=== PATIENT | female | born 1955 | race Caucasian/White ===

== ENCOUNTER 2016-08-19 11:12 | Inpatient (IN) | payer OTHER ==
[~2016-08-19] VITALS: Ht 157.5 cm; Wt 58.1 kg
[~2016-08-19 11:12] MED LIST: ACET-4192 PO; ACYC800T1 PO; BENA20TA4 PO; ESOM40EC PO; GLYB1TAB13 PO; HYDR-4452 PO; HYDR4TAB4 PO; SIMV20TA6 PO; SITA100T8 PO
[2016-08-19 11:46] VITALS: BP 153/73
--- NOTE | 2016-08-19 12:10 | NUR ---
Pt taken to bed 8.
--- NOTE | 2016-08-19 12:11 | NUR ---
60/F bib daughter in law for evaluation of generalized weakness x1 month. Daughter in law states that the patient went to see her PMD, and they did lab work. She states they called her and told her she had a severe anemia and needed to be referred to a specialist. Pt unable to provide specific lab results or warml and pale. VSS.
--- NOTE | 2016-08-19 12:33 | NUR ---
Dr. Merlos evaluating patient at bedside.
--- NOTE | 2016-08-19 12:33 | NUR ---
Patient being evaluated by physician at bedside.
[2016-08-19 12:43] LABS: PARTIAL THROMBOPLASTIN TIME 24.9 secs (22-35.6); PROTHROMBIN TIME 10.4 secs (10.8-13.4)
[2016-08-19 12:48] LABS: ANION GAP 10.8 (8-16); CALCIUM 7.9 mg/dL (8.5-10.1); CARBON DIOXIDE 28.3 mmol/L (21-32); CREATININE 0.6 mg/dL (0.6-1.3); POTASSIUM 4.1 mmol/L (3.5-5.1)
[2016-08-19 12:53] LABS: ALBUMIN 3.8 g/dL (3.4-5.0); TOTAL BILIRUBIN 0.6 mg/dL (0.0-1.0); TOTAL PROTEIN, SERUM 7.8 g/dL (6.4-8.2)
[2016-08-19 13:15] LABS: BASOPHILS # (AUTO) 0.1 K/uL (0.00-0.22); BASOPHILS % (AUTO) 0.6 % (0.0-2.0); EOSINOPHILS # (AUTO) 0.3 K/uL (0-0.4); HEMATOCRIT 26.6 % (36-48); HEMOGLOBIN 7.1 g/dL (12.0-16.0); LYMPHOCYTES % (AUTO) 23.1 % (20.5-51.1); MEAN CORPUSCULAR HEMOGLOBIN 14 pg (27-31); MEAN CORPUSCULAR HGB CONC 27 g/dL (33-37); MEAN CORPUSCULAR VOLUME 53 fL (80-94); MONOCYTES # (AUTO) 0.4 K/uL (0.8-1.0); MONOCYTES % (AUTO) 4.8 % (1.7-9.3); NEUTROPHILS # (AUTO) 6.1 K/uL (1.8-7.7); NEUTROPHILS % (AUTO) 68.5 % (42.2-75.2); PLATELET COUNT (AUTO) 424 K/uL (140-450); RED BLOOD CELL COUNT(AUTO) 5.06 MIL/uL (4.20-5.40); RED CELL DISTRIBUTION WIDTH 21.4 % (11.6-13.7); WHITE BLOOD COUNT (AUTO) 8.9 K/uL (4.8-10.8)
--- NOTE | 2016-08-19 13:22 | NUR ---
Daughter in law at bedside. Pt is calm and relaxed. VSS. No distress noted.
[2016-08-19 13:44] LABS: ANISOCYTOSIS 1+; HYPOCHROMASIA 2+; OVALOCYTES 1+; POIKILOCYTOSIS 1+; SPHEROCYTES 1+; STOMATOCYTES 1+
[2016-08-19] MEDS ORDERED: MORPHINE SULFATE 2 MG/ML SYR IVP PRN (14:05)
[2016-08-19] MEDS ORDERED: ONDANSETRON 4 MG/2 ML VIAL IVP PRN (14:05)
[2016-08-19] MEDS ORDERED: HYDROcodone/APAP 5/325 MG 1 TAB TAB PO PRN (14:05)
--- NOTE | 2016-08-19 14:59 | NUR ---
Patient appears to be resting comfortably in bed. VSS.
[2016-08-19 15:20] VITALS: BP 129/68
--- NOTE | 2016-08-19 15:20 | NUR ---
PT ADMITTED FROM ER, WITH DX OF ANEMIA AND ORTHOSTATIC HYPOTENSION. AWAKE ALERT AND ORIENTED X4, LITHUANIAN SPEAKING. BREATHING EVENLY AND UNLABORED. NO SIGNS OF ACUTE DISTRESS. NO C/O OF LIGHT HEADEDNESS, BLURRED VISION OR DIZZINESS. SKIN IS WARM AND DRY, NO SIGNS OF ANY BOWEL OR BLADDER DISCOMFORT. DENIES OF ANY PAIN OR DISCOMFORT. ALL NEEDS ATTENDED, SAFETY PRECAUTIONS MAINTAINED. CALL LIGHT WITHIN REACH.
--- NOTE | 2016-08-19 15:45 | NUR ---
DR ARIAS AWARE OF LAB REQUIRES AN MRSA SWAB ORDER.
--- NOTE | 2016-08-19 16:00 | NUR ---
OBTAINED FIRST UNIT OF PRBC. VERIFIED AT BEDSIDE WITH BIRD KERNS. PT AWAKE ALERT, NO SIGNS OF ACUTE DISTRESS. CONTINUE TO MONITOR.
--- NOTE | 2016-08-19 16:05 | NUR ---
PT STARTED ON FIRST UNIT OF PRBC. TOLERATING WELL CONTINUE TO MONITOR.
--- NOTE | 2016-08-19 16:20 | NUR ---
PT RESTING WELL, NO SIGNS OF ADVERSE EFFECTS FROM BLOOD TRANSFUSION. DENIES OF ANY SOB, FEVER, HIVES OR ITCHING. CONTINUE TO MONITOR.
[2016-08-19] MEDS ORDERED: PNEUMOCOCCAL VACCINE 23 MCG/0.5 ML VIAL IMVAC SCH (16:40)
--- NOTE | 2016-08-19 16:53 | NUR ---
CHARGE NURSE SPOKE WITH ER MD TO PLACE ORDER FOR CODE STATUS.
[2016-08-19] MEDS ORDERED: LORazepam 0.5 MG TAB PO PRN (17:30)
--- NOTE | 2016-08-19 18:22 | NUR ---
PT AWAKE ALERT AND RESPONSIVE, NO SIGNS OF ACUTE DISTRESS. WILL ENDORSE TO ONCOMING ROLL FILLER NURSE FOR CONTINUITY OF CARE.
[2016-08-19 18:47] LABS: APPEARANCE,URINE CLEAR (CLEAR); BILIRUBIN,URINE NEGATIVE (NEGATIVE); BLOOD, URINE NEGATIVE (NEGATIVE); COLOR,URINE YELLOW (YELLOW); LEUKOCYTE ESTERASE ,URINE NEGATIVE (NEGATIVE); NITRITE, URINE NEGATIVE (NEGATIVE); PROTEIN,URINE NEGATIVE (NEGATIVE); UGLUCOSE 2+ (NEGATIVE); UROBILINOGEN,URINE 0.2 EU/dL (0.2 - 1)
[2016-08-19 18:50] LABS: BACTERIA,URINE RARE /HPF (None Seen); RBC,URINE 0-3 /HPF (0-5); SQUAMOUS EPITHELIAL CELL,UR 0-5 /LPF (0-3 (FEW)); WBC,URINE 0-3 /HPF (0-5)
[2016-08-19 18:52] LABS: AMPHETAMINE, URINE NEG. ng/ml (NEG <=1000); BARBITURATE, URINE NEG. ng/ml (NEG <=200); BENZODIAZEPINE, URINE NEG. ng/mL (NEG <=200); CANNABINOID, URINE NEG. ng/mL (NEG <=50); COCAINE, URINE NEG. ng/mL (NEG <=300); OPIATE, URINE NEG. ng/mL (NEG <=2000); PHENCYCLIDINE SCREEN,URINE NEG. ng/mL (NEG <=25)
[2016-08-19] MEDS ORDERED: MECLIZINE 25 MG TAB PO PRN (19:15)
--- NOTE | 2016-08-19 19:25 | NUR ---
PT FINISHED FIRST UNIT OF PRBC. ALERT AND ORIENTED, NO SIGNS OF ACUTE DISTRESS. BOSTON CUTTER NURSE TO CONTINUE PLAN OF CARE.
--- NOTE | 2016-08-19 19:35 | NUR ---
RECEIVED REPORT FROM BIRD BLOUNT AT BEDSIDE. INITIAL ASSESSMENT COMPLETED. PT AAOX4. PT RECEIVING FIRST UNIT OF BLOOD. PT TOLERATING IT WELL. PT STABLE, ORIENTED PT TO ROOM AND SURROUNDINGS AND USE OF CALL LIGHT. PT'S SKIN IS INTACT. PT HAS IV HAS IV ON RIGHT AC G 18; INFUSING BLOOD WELL. EXPLAINED PLAN OF CARE TO PT AND SHE VERBALIZES UNDERSTANDING. WILL CONTINUE TO MONITOR PT.
[2016-08-19 20:00] VITALS: BP 135/75
[2016-08-19] MEDS: BLOOD GLUCOSE MONITORING 1 DEV DEV FS SCH (21:00)
--- NOTE | 2016-08-19 21:20 | NUR ---
PT TOLERATING BLOOD TRANSFUSION WELL. NO SIGNS OF DISTRESS OR DISCOMFORT NOTED. WILL CONTINUE TO MONITOR PT.
--- NOTE | 2016-08-19 22:10 | NUR ---
PT COMPLAINING OF GENERALIZED PAIN. VS STABLE, WILL MEDICATE ORDERED.
[2016-08-19] MEDS: SIMVASTATIN 20 MG TAB PO SCH (22:13)
[2016-08-19] MEDS: ACYCLOVIR 800 MG TAB PO SCH (22:13)
--- NOTE | 2016-08-19 22:15 | NUR ---
PT TOLERATED 2100 MEDS WELL. WILL CONTINUE TO MONITOR PT.
[2016-08-19] MEDS: INSULIN LISPRO SLIDING SCALE 100 UNITS/ML VIAL SUBQ PRN (22:21)
--- NOTE | 2016-08-19 22:35 | NUR ---
SECOND UNIT OF BLOOD TRANSFUSION FINISHED. PT STABLE. PT TOLERATED IT WELL. WILL CONTINUE TO MONITOR PT.
[2016-08-20] VITALS: BP 137/71
--- NOTE | 2016-08-20 00:13 | NUR ---
CHECKED ON PT VS STABLE. NO DISTRESS/DISCOMFORT NOTED. WILL CONTINUE TO MONITOR PT.
--- NOTE | 2016-08-20 02:25 | NUR ---
PT AMBULATED TO THE RESTROOM. PT BACK IN BED NOW. PT STABLE, WILL CONTINUE TO MONITOR PT.
[2016-08-20 04:00] VITALS: BP 119/68
--- NOTE | 2016-08-20 04:15 | NUR ---
PT SLEEPING AT THIS TIME. NO SIGNS OF DISTRESS NOTED. WILL CONTINUE TO MONITOR PT.
--- NOTE | 2016-08-20 05:07 | NUR ---
PT AMBULATED TO THE RESTROOM. PT BACK IN BED NOW. PT STABLE, WILL CONTINUE TO MONITOR PT.
[2016-08-20] MEDS: PANTOPRAZOLE 40 MG TABEC PO SCH (06:05)
--- NOTE | 2016-08-20 06:10 | NUR ---
PT TOLERATED MORNING MEDS WELL. WILL CONTINUE TO MONITOR PT.
[2016-08-20] MEDS: BLOOD GLUCOSE MONITORING 1 DEV DEV FS SCH ×4 (06:21→21:06)
[2016-08-20] MEDS: INSULIN LISPRO SLIDING SCALE 100 UNITS/ML VIAL SUBQ PRN ×2 (06:21→10:43)
--- NOTE | 2016-08-20 07:11 | NUR ---
PATIENT HAS BEEN SCREENED AND CATEGORIZED MODERATE NUTRITION RISK. PATIENT WILL BE SEEN WITHIN 3-5 DAYS OF ADMISSION. 08/22/16-08/24/16 DEBORAH GRISSOM MS, RDN
--- NOTE | 2016-08-20 07:17 | NUR ---
ENDORSED PLAN OF CARE TO DAY SHIFT NURSE. PT IN STABLE CONDITION.
--- NOTE | 2016-08-20 07:18 | NUR ---
PT AWAKE ALERT AND ORIENTED X4, YAKUT SPEAKING. BREATHING EVENLY AND UNLABORED. NO SIGNS OF ACUTE DISTRESS. NO C/O OF LIGHT HEADEDNESS, BLURRED VISION OR DIZZINESS. SKIN IS WARM AND DRY, NO SIGNS OF ANY BOWEL OR BLADDER DISCOMFORT. DENIES OF ANY PAIN OR DISCOMFORT. ALL NEEDS ATTENDED, SAFETY PRECAUTIONS MAINTAINED. CALL LIGHT WITHIN REACH.
[2016-08-20 07:41] LABS: BASOPHILS # (AUTO) 0.1 K/uL (0.00-0.22); BASOPHILS % (AUTO) 1.6 % (0.0-2.0); EOSINOPHILS # (AUTO) 0.4 K/uL (0-0.4); EOSINOPHILS % (AUTO) 5.4 % (0.0-4.0); HEMATOCRIT 32.5 % (36-48); HEMOGLOBIN 9.1 g/dL (12.0-16.0); LYMPHOCYTES # (AUTO) 1.8 K/uL (2.5-16.5); LYMPHOCYTES % (AUTO) 26.3 % (20.5-51.1); MEAN CORPUSCULAR HEMOGLOBIN 17 pg (27-31); MEAN CORPUSCULAR HGB CONC 28 g/dL (33-37); MEAN CORPUSCULAR VOLUME 59 fL (80-94); MONOCYTES # (AUTO) 0.4 K/uL (0.8-1.0); MONOCYTES % (AUTO) 5.2 % (1.7-9.3); NEUTROPHILS # (AUTO) 4.1 K/uL (1.8-7.7); NEUTROPHILS % (AUTO) 61.5 % (42.2-75.2); PLATELET COUNT (AUTO) 342 K/uL (140-450); RED BLOOD CELL COUNT(AUTO) 5.48 MIL/uL (4.20-5.40); RED CELL DISTRIBUTION WIDTH 32.8 % (11.6-13.7); WHITE BLOOD COUNT (AUTO) 6.8 K/uL (4.8-10.8)
[2016-08-20 07:53] VITALS: BP 122/69
[2016-08-20 07:58] LABS: ANION GAP 11.5 (8-16); CALCIUM 7.9 mg/dL (8.5-10.1); CARBON DIOXIDE 28.6 mmol/L (21-32); CREATININE 0.5 mg/dL (0.6-1.3); POTASSIUM 4.1 mmol/L (3.5-5.1)
[2016-08-20 08:01] LABS: MAGNESIUM 1.9 mg/dL (1.8-2.4); PHOSPHORUS 4.5 mg/dL (2.5-4.9)
[2016-08-20] MEDS: metFORMIN 500 MG TAB PO SCH ×3 (08:31→16:02)
[2016-08-20] MEDS: glyBURIDE 5 MG TAB PO SCH ×3 (08:31→16:03)
[2016-08-20] MEDS: busPIRone 5 MG TAB PO SCH (08:31)
[2016-08-20] MEDS: ACYCLOVIR 800 MG TAB PO SCH ×2 (08:31→21:00)
[2016-08-20 08:45] LABS: HYPOCHROMASIA 2+; POIKILOCYTOSIS 1+
[2016-08-20 08:46] LABS: ANISOCYTOSIS 2+
[2016-08-20] MEDS ORDERED: NON-FORMULARY ITEM (Esomeprazole Magnesium* (Nexium*) 40 MG) PO SCH (09:00)
[2016-08-20] MEDS ORDERED: METFORMIN HCL PO SCH (09:00)
[2016-08-20] MEDS ORDERED: GLYBURIDE PO SCH (09:00)
[2016-08-20 10:21] LABS: FERRITIN 4 ng/mL (15-150); FOLIC ACID > 20.00 ng/mL (>3.0)
[2016-08-20 10:47] LABS: TRANSFERRIN 386 mg/dL (200-370)
[2016-08-20 11:55] VITALS: BP 126/59
[2016-08-20 15:56] VITALS: BP 127/63
--- NOTE | 2016-08-20 18:26 | NUR ---
NEW ORDERS RECEIVED FROM DR. PUCKETT. NOTED AND CARRIED OUT.
--- NOTE | 2016-08-20 18:58 | NUR ---
PT ALERT AND RESPONSIVE, NO SIGNS OF ACUTE DISTRESS. ENDORSED TO ONCOMING QUALITY ASSURANCE ANALYST NURSE FOR CONTINUITY OF CARE
--- NOTE | 2016-08-20 19:20 | NUR ---
RECEIVED PT AWAKE, AAOX4, OCCITAN SPEAKING ONLY, DENIES ANY PAIN, VITAL SIGNS STABLE, PLAN OF CARE DISCUSSED WITH FAMILY MEMBERS AT BEDSIDE, SAFETY MEASURES IN PLACE, CALL LIGHT WITHIN REACH.
--- NOTE | 2016-08-20 19:50 | NUR ---
PT AMBULATED TO BR WITH STEADY GAIT, NO BM AT THIS TIME, UNABLE TO COLLECT STOOL FOR OCCULT BLOOD, WILL FOLLOW UP, ALL NEEDS ATTENDED.
[2016-08-20 20:00] VITALS: BP 118/62
[2016-08-20] MEDS: SIMVASTATIN 20 MG TAB PO SCH (21:03)
--- NOTE | 2016-08-20 21:05 | NUR ---
ECHOCARDIOGRAM DONE, BLOOD SUGAR CHECKED WITH 213 RESULT, COVERAGE GIVEN, SNACK PROVIDED, DUE PO MEDICATION ADMINISTERED, MONITORED CLOSELY.
--- NOTE | 2016-08-20 22:31 | NUR ---
ULTRASOUND OF CAROTID DONE, TOLERATED WELL, MONITORED CLOSELY.
[2016-08-21] VITALS: BP 124/60
--- NOTE | 2016-08-21 | NUR ---
PT SLEEPING, EASILY AROUSABLE, VITAL SIGNS STABLE, DENIES ANY PAIN, NO SOB NOTED, CONTINUE TO MONITOR CLOSELY.
--- NOTE | 2016-08-21 03:50 | NUR ---
PT SLEEPING, EASILY AROUSABLE, VITAL SIGNS TAKEN, BP STABLE, SB ON TELE, ASYMPTOMATIC, NO SIGNS OF DISTRESS, MONITORED CLOSELY.
[2016-08-21 04:00] VITALS: BP 114/67
[2016-08-21] MEDS: PANTOPRAZOLE 40 MG TABEC PO SCH (06:01)
--- NOTE | 2016-08-21 06:02 | NUR ---
BLOOD SUGAR CHECKED WITH 125 RESULT, DUE PO MEDICATION GIVEN, NO DISTRESS NOTED, MONITORED CLOSELY.
[2016-08-21] MEDS: BLOOD GLUCOSE MONITORING 1 DEV DEV FS SCH ×2 (06:31→11:30)
[2016-08-21 07:18] LABS: HEMOGLOBIN 9.6 g/dL (12.0-16.0); MEAN CORPUSCULAR HEMOGLOBIN 17 pg (27-31); MEAN CORPUSCULAR HGB CONC 29 g/dL (33-37); MEAN CORPUSCULAR VOLUME 58 fL (80-94); PLATELET COUNT (AUTO) 354 K/uL (140-450); RED BLOOD CELL COUNT(AUTO) 5.65 MIL/uL (4.20-5.40); RED CELL DISTRIBUTION WIDTH 32.7 % (11.6-13.7); WHITE BLOOD COUNT (AUTO) 8.3 K/uL (4.8-10.8)
--- NOTE | 2016-08-21 07:25 | NUR ---
PT SLEEPING, EASILY AROUSABLE, REPORT GIVEN TO RN LEI FOR CONTINUITY OF CARE.
--- NOTE | 2016-08-21 07:30 | NUR ---
RECEIVED ON BED AAOX4. NO SOB NOTED. NO C/O PAIN AT THIS TIME. IV TO RT AC PATENT AND INTACT. CHEST CLEAR. ABDOMEN SOFT, BOWEL SOUNDS PRESENT. NO EDEMA NOTED. INSTRUCTED PT TO CALL FOR ASSISTANCE, CALL LIGHT WITHIN REACH. PT VERBALIZED UNDERSTANDING.
[2016-08-21 07:38] LABS: CALCIUM 7.9 mg/dL (8.5-10.1); CARBON DIOXIDE 26.9 mmol/L (21-32); CREATININE 0.5 mg/dL (0.6-1.3); POTASSIUM 3.9 mmol/L (3.5-5.1)
[2016-08-21 08:00] VITALS: BP 129/72
[2016-08-21] MEDS ORDERED: FERROUS SULFATE 325 MG TABEC PO SCH (08:00)
--- NOTE | 2016-08-21 08:00 | NUR ---
SPECIMEN COLLECTED FOR STOOL OB AND SENT TO LAB.
[2016-08-21 08:32] LABS: BAND % (MANUAL) 1 % (0-8); EOSINOPHILS % (MANUAL) 7 % (0-4); LYMPHOCYTES % (MANUAL) 21 % (20-46); MONOCYTES % (MANUAL) 1 % (5-12); NEUTROPHILS % (MANUAL) 70 (43-65)
[2016-08-21 08:34] LABS: PLATELET ESTIMATE ADEQUATE
[2016-08-21 08:35] LABS: HYPOCHROMASIA 3+
[2016-08-21] MEDS: glyBURIDE 5 MG TAB PO SCH ×2 (09:03→12:32)
[2016-08-21] MEDS: ACYCLOVIR 800 MG TAB PO SCH (09:03)
[2016-08-21] MEDS: metFORMIN 500 MG TAB PO SCH ×2 (09:04→12:33)
[2016-08-21] MEDS: busPIRone 5 MG TAB PO SCH (09:04)
[2016-08-21] MEDS ORDERED: FERRIC GLUCONATE 125 MG in NACL 0.9% 100 ML IV SCH (09:45)
[2016-08-21 12:00] VITALS: BP 124/63
--- NOTE | 2016-08-21 12:30 | NUR ---
PT CONSUMED 100% OF LUNCHED SERVED. FOOD TOLERATED WELL.
[2016-08-21] MEDS: INSULIN LISPRO SLIDING SCALE 100 UNITS/ML VIAL SUBQ PRN (12:33)
--- NOTE | 2016-08-21 14:15 | NUR ---
PT TALKING TO FAMILY AT THE BEDSIDE.
[2016-08-21] MEDS ORDERED: FERR325E14 PO (15:35)
--- NOTE | 2016-08-21 16:00 | NUR ---
DISCHARGE INSTRUCTIONS GIVEN TO PT AND PT'S SON, BOTH VERBALIZED FULL UNDERSTANDING OF THE INSTRUCTIONS GIVEN AND THE NEED TO FOLLOW UP WITH PCP WITHIN 7 DAYS. ARM BANDS AND IV REMOVED, CANNULA TIP INTACT.
--- NOTE | 2016-08-21 16:00 | NUR ---
PT WHEELED OUT IN STABLE CONDITION. NO COMPLAINTS MADE. PT IS DISCHARGE HOME WITH FAMILY.
== END 2016-08-21 16:15 | disposition home or self-care (01) | DRG 663 ==
LOC: MED 11:12 → MTU 14:02
PROVIDERS: ADMIT Family Medicine; ATTEND Family Medicine
PROC: 30233N1 Transfusion of Nonautologous Red Blood Cells into Peripheral Vein, Percutaneous Approach (ICD-10-PCS; principal; 2016-08-19)
DX: D50.9 Iron deficiency anemia, unspecified (principal); N17.0 Acute kidney failure with tubular necrosis; D68.59 Other primary thrombophilia; G90.9 Disorder of the autonomic nervous system, unspecified; E11.65 Type 2 diabetes mellitus with hyperglycemia; E11.51 Type 2 diabetes mellitus with diabetic peripheral angiopathy without gangrene; Z79.899 Other long term (current) drug therapy; I10 Essential (primary) hypertension; F32.9 Major depressive disorder, single episode, unspecified; E78.5 Hyperlipidemia, unspecified; I95.1 Orthostatic hypotension; Z90.711 Acquired absence of uterus with remaining cervical stump; F41.9 Anxiety disorder, unspecified
CPT/HCPCS: 36415; 71010; 80048; 80053; 80305; 81001; 81025; 82607; 82728; 82746; 82948; 83036; 83540; 83735; 83880; 84100; 84484; 85025; 85045; 85610; 85730; 86886; 86900; 86901; 86920; 87081; 90732; 93005; 93880; 93925; 93970; 99285; J1815; J2916; J7030; J8597; P9016; Q0092

== ENCOUNTER 2018-06-14 12:15 | Emergency (ER) | payer OTHER ==
[~2018-06-14] VITALS: Ht 160 cm; Wt 58.1 kg
[~2018-06-14 12:15] MED LIST changes: +ACET-787 PO; +BENA20TA12 PO; -BENA20TA4 PO; +FERR325E14 PO; -GLYB1TAB13 PO; -HYDR-4452 PO; +[UNRECOGNIZED DRUG - CODE] PO
[2018-06-14 12:24] VITALS: BP 149/80
[2018-06-14] MEDS ORDERED: hydrOXYzine HCL 25 MG TAB PO ONE (12:50)
[2018-06-14] MEDS ORDERED: DEXAMETHASONE 10 MG/ML VIAL IM ONE (12:50)
[2018-06-14] MEDS ORDERED: CLINDAMYCIN 600 MG/4 ML VIAL IM ONE (12:50)
[2018-06-14 14:04] VITALS: BP 143/76
--- NOTE | 2018-06-14 14:04 | NUR ---
Patient discharged with v/s stable. Written and verbal after care instructions given and explained. Patient alert, oriented and verbalized understanding of instructions. Ambulatory with steady gait. All questions addressed prior to discharge. ID band removed. Patient advised to follow up with PMD. Rx of AZITHROMYCIN, PREDNISONE given. Patient educated on indication of medication including possible reaction and side effects. Opportunity to ask questions provided and answered. PT DAUGHTER IN LAW CALLED FOR RIDE HOME.
== END 2018-06-14 14:04 | disposition home or self-care (01) ==
LOC: MED 12:15
DX: J32.9 Chronic sinusitis, unspecified (principal); K13.79 Other lesions of oral mucosa; E11.9 Type 2 diabetes mellitus without complications; I10 Essential (primary) hypertension; Z79.84 Long term (current) use of oral hypoglycemic drugs; Z79.891 Long term (current) use of opiate analgesic; Z79.899 Other long term (current) drug therapy
CPT/HCPCS: 96372; 99283; J1100; J3490

== ENCOUNTER 2018-06-18 11:37 | Emergency (ER) | payer OTHER ==
[~2018-06-18] VITALS: Ht 160 cm; Wt 59.0 kg
[2018-06-18 11:43] VITALS: BP 112/63
--- NOTE | 2018-06-18 12:02 | NUR ---
PT AMBULATED TO ER BED 04
--- NOTE | 2018-06-18 12:22 | NUR ---
62/F BIB FAMILY c/o generalized fatigue, bodyaches, headache, sinus pain x >20 days. seen in our ER 06/14/2018 rx ZPK , PREDNISONE, Naprosyn as per pt she feels worse hx---hyperlipidemia, htn, dm rx---simvastatin, glucovance, hctz, januvia PATIENT STATES PAIN OF 8/10 AT THIS TIME. PATIENT POSITIONED FOR COMFORT; HOB ELEVATED; BEDRAILS UP X2; BED DOWN. ER MD MADE AWARE OF PT STATUS.
[2018-06-18] MEDS ORDERED: KETOROLAC 30 MG/ML VIAL IM ONE (13:00)
[2018-06-18 14:02] LABS: ANION GAP 10.4 (8-16); CARBON DIOXIDE 31.2 mmol/L (21-32); CREATININE 0.6 mg/dL (0.6-1.3); POTASSIUM 3.6 mmol/L (3.5-5.1)
[2018-06-18 14:32] VITALS: BP 129/61
== END 2018-06-18 14:32 | disposition home or self-care (01) ==
LOC: MED 11:37
DX: R51 Headache (principal); R53.83 Other fatigue; J34.89 Other specified disorders of nose and nasal sinuses; E11.9 Type 2 diabetes mellitus without complications; I10 Essential (primary) hypertension; Z90.710 Acquired absence of both cervix and uterus; Z79.891 Long term (current) use of opiate analgesic; Z79.84 Long term (current) use of oral hypoglycemic drugs; Z79.899 Other long term (current) drug therapy
CPT/HCPCS: 36415; 70450; 80048; 82948; 93005; 96372; 99284; J1885